=== PATIENT | male | born 1950 | race Caucasian/White ===

== ENCOUNTER 2016-11-12 12:47 | Emergency (ER) ==
[2016-11-12 12:53] VITALS: BP 177/82; TEMP 97.8; BMI 19.1
[2016-11-12] MEDS ORDERED: DECADRON 4 MG/ML SDV IM STA (13:16)
--- NOTE | 2016-11-12 13:23 | ED.PDOC ---
General ED Provider: Dr. AMIRA KANG Chief Complaint: Hypertension Stated Complaint: Been coughing, congestion, getting yellow, sputum, taking OTC meds, checked BP today it was high, came for the evaluation. Time Seen by Physician: 13:21 Mode of Arrival: Walk-In Information Source: Patient Nursing and Triage Documentation Reviewed and Agree: Yes Respiratory Complaint Exam - Respiratory Complaint/Exam Symptoms Are: Still present Timing: Constant Initial Severity: Mild Current Severity: Mild Location: Chest Character: Reports: Productive cough Aggravating: Reports: URI, Passive smoke exposure Alleviating: Reports: None Associated Signs and Symptoms: Reports: URI, Nasal congestion. Denies: Rapid breathing, Dyspnea, Fever, Chills, Chest pain, Pleuritic chest pain, Wheezing, Hemoptysis, Dizziness, Calf pain, Calf swelling, Edema, Hoarseness, Sinus discomfort, Vomiting, Sore throat, Weight loss, Decreased oral intake, Increased thirst, Increased appetite, Increased urination History of Healthcare-Acquired Pneumonia: No Related Surgical History: Reports: None Pulmonary Embolism Risk Factors: None Cardiac Risk Factors: Reports: None Pseudomonas Risk Factors: Reports: None Tuberculosis Risk Factors: Reports: None Status Asthmaticus Risk Factors: Reports: None Home Oxygen Use: No Recent Stress Test: No Recent Echo/LV Function: No Current Antibiotic Use: No Current Asthma Medication Use: No Respiratory Distress: None Dysphagia Present: No Stridor Present: No JVD Present: No Retractions: Not Present Diminished Breath Sounds: No Sinus Tenderness: None Grunting Respirations: No Differential Diagnoses: Pneumonia, Bronchitis Review of Systems - Review Of Systems Constitutional: Reports: Malaise Eyes: Reports: No symptoms Ears, Nose, Mouth, Throat: Reports: No symptoms Respiratory: Reports: Cough Cardiac: Reports: No symptoms GI: Reports: No symptoms : Reports: No symptoms Musculoskeletal: Reports: No symptoms Skin: Reports: No symptoms Neurological: Reports: No symptoms Endocrine: Reports: No symptoms Hematologic/Lymphatic: Reports: No symptoms All Other Systems: Reviewed and Negative Past Medical History - Past Medical History Previously Healthy: No Endocrine: Reports: None Cardiovascular: Reports: Hypertension Respiratory: Reports: None Hematological: Reports: None Gastrointestinal: Reports: None Genitourinary: Reports: None Neuro/Psych: Reports: None Musculoskeletal: Reports: None Cancer: Reports: None - Surgical History General Surgical History: Reports: Appendectomy, Cholecystectomy, Tonsillectomy - Family History Family History: Reports: None - Social History Smoking Status: Current every day smoker Smoking Cessation Counseling Time: > 10 min Hx Substance Use: No Alcohol Screening: None Physical Exam - Physical Exam Appearance: Well-appearing, No pain distress, Well-nourished Eyes: TIM, EOMI, Conjunctiva clear ENT: Ears normal, Nose normal, Oropharynx normal Respiratory: Airway patent, Breath sounds clear, Breath sounds equal, Respirations nonlabored Cardiovascular: RRR, Pulses normal, No rub, No murmur GI/: Soft, Nontender, No masses, Bowel sounds normal, No Organomegaly Musculoskeletal: Normal strength, ROM intact, No edema, No calf tenderness Skin: Warm, Dry, Normal color Neurological: Sensation intact, Motor intact, Reflexes intact, Cranial nerves intact, Alert, Oriented Psychiatric: Affect appropriate, Mood appropriate Interpretation - Radiology Interpretation Radiology Interpretation By: ED Physician Radiology Results: Negative Exam Interpreted: CXR Critical Care Note - Critical Care Note Total Time (mins): 0 Course - Course Orders, Labs, Meds: Orders Category Date Time Status Dexamethasone 4 mg/ml Inj [Decadron 4 mg/ml Sdv] MEDS 11/12/16 13:16 Discontinued 4 mg IM ONCE STA CHEST, 2 VIEWS PA & LAT Stat RADS 11/12/16 13:16 Taken Medications Discontinued Medications Generic Name Dose Route Start Last Admin Trade Name Ben PRN Reason Stop Dose Admin Dexamethasone Sodium Phosphate 4 mg 11/12/16 13:16 11/12/16 13:37 Decadron 4 Mg/Ml Sdv IM 11/12/16 13:17 4 mg ONCE STA Administration Vital Signs: Temp Pulse Resp BP Pulse Ox 11/12/16 12:48 97.8 F 74 14 177/82 H 92 L Departure - Departure Time of Disposition: 13:40 Disposition: HOME SELF-CARE Discharge Problem: Acute upper respiratory infection Instructions: Upper Respiratory Infection (ED) Condition: Stable Pt referred to PMD for follow-up: Yes Additional Instructions: INCREASE HYDRATION STOP OTC MEDS keep checking blood pressure smoking can cause lung cancer Prescriptions: Cephalexin [Keflex] 500 mg PO Q12HR #20 capsule Guaifenesin/Codeine Phosphate [Robitussin AC Syrup] 10 ml PO Q6H #1 bottle Methylprednisolone [Medrol Dosepak] 4 mg PO DIRECTED #1 pkg Allergies/Adverse Reactions: Allergies No Known Allergies Allergy (Unverified 11/12/16 12:52) Home Medications: Ambulatory Orders Cephalexin [Keflex] 500 mg PO Q12HR #20 capsule 11/12/16 Guaifenesin/Codeine Phosphate [Robitussin AC Syrup] 10 ml PO Q6H #1 bottle 11/12 Methylprednisolone [Medrol Dosepak] 4 mg PO DIRECTED #1 pkg 11/12/16 Disposition Discussed With: Patient
--- NOTE | 2016-11-12 13:42 | DI ---
EXAM: Chest two views HISTORY: Coughing COMPARISON: None TECHNIQUE: Two views of the chest were performed FINDINGS: Questionable interstitial infiltrate right upper lobe. Lungs are hyperinflated. There i s no pleural effusion or pneumothorax. The heart is normal in size. The mediastinal contour is nor mal. There are no acute abnormalities of the bones. IMPRESSION: 1. Questionable interstitial infiltrate right upper lobe could represent interstitial pneumonia / p neumonitis. Recommend radiographic follow-up 2. Hyperinflated lungs suggest chronic obstructive pulmonary disease. Report faxed at time of dictation.
== END 2016-11-12 14:03 | disposition home or self-care (01) ==
LOC: ED 12:47
DX: J06.9 Acute upper respiratory infection, unspecified (principal); I10 Essential (primary) hypertension; F17.210 Nicotine dependence, cigarettes, uncomplicated
CPT/HCPCS: 96372; 99283

== ENCOUNTER 2017-05-12 19:06 | Inpatient (IN) ==
[2017-05-12] MEDS ORDERED: DUONEB NEB STA (19:20)
[2017-05-12 19:37] LABS: BASOPHILS # (AUTO) 0.1 K/uL (0-0.2); BASOPHILS % (AUTO) 0.6 % (0.0-3.0); EOSINOPHILS % (AUTO) 0.1 % (0.0-7.0); HEMATOCRIT 37.3 % (42.0-52.0); HEMOGLOBIN 12.5 g/dl (14.0-18.0); IMMATURE GRANULOCYTE % (AUTO) 0.4 % (0.0-5.0); LYMPHOCYTES # (AUTO) 1.6 K/uL (0.60-3.4); LYMPHOCYTES % (AUTO) 19.5 (10.0-50.0); MEAN CORPUSCULAR HEMOGLOBIN 31.3 pg (27.0-31.0); MEAN CORPUSCULAR HGB CONC 33.5 (31.8-35.4); MEAN CORPUSCULAR VOLUME 93.3 fl (80.0-94.0); MONOCYTES # (AUTO) 0.5 K/uL (0.4-2.0); MONOCYTES % (AUTO) 6.5 (0-10); NEUTROPHILS # (AUTO) 5.9 K/ul (2.0-6.9); NEUTROPHILS % (AUTO) 72.9; PLATELET COUNT 294 10^3/uL (140-440); WHITE BLOOD COUNT 8.04 K/ul (4.2-10.2)
[2017-05-12 19:41] LABS: ABG BASE EXCESS 1 (-2.0-2.0); ABG HCO3 26.4 (22.0-26.0); ABG PCO2 50.1 mmHg (35-45); ABG TCO2 28 (22.0-28.0)
[2017-05-12 19:57] LABS: ALBUMIN 3.1 g/dL (3.4-5.0); ALBUMIN/GLOBULIN RATIO 0.76; ANION GAP 18.2; BILIRUBIN,TOTAL 0.45 mg/dL (0.00-1.20); BUN/CREATININE RATIO 10.81; CALCIUM 8.4 mg/dL (8.2-10.2); CREATININE 1.48 mg/dL (0.60-1.10); POTASSIUM 3.2 mmol/L (3.5-5.1); TOTAL PROTEIN 7.2 g/dL (5.8-8.1)
[2017-05-12] MEDS ORDERED: ZITHROMAX PO STA (20:01)
[2017-05-12] MEDS ORDERED: ROCEPHIN 1 GM in SODIUM CHLORIDE 50 ML IV STA (20:01)
[2017-05-12] MEDS ORDERED: SODIUM CHLORIDE 1,000 ML IV STA (20:01)
[2017-05-12] MEDS ORDERED: ROCEPHIN ONE (20:09)
--- NOTE | 2017-05-12 20:09 | DI ---
EXAM: Chest one view. CLINICAL INDICATION: Fever. COMPARISON: 11/12/2016. FINDINGS: A single AP radiograph of the thorax is provided. There are chronic underlying pulmonary parenchymal changes. There is calcified left upper lobe pulm onary granuloma, consistent with old healed granulomatous disease. The remainder of the pulmonary p arenchyma is clear and there is no pleural abnormality. The cardiomediastinal silhouette and visual ized bony structures are unchanged. IMPRESSION: 1. No acute pulmonary abnormality. 2. Chronic underlying pulmonary parenchymal changes.
--- NOTE | 2017-05-12 20:15 | ED.PDOC ---
General ED Provider: Dr. MAURI QUINONEZ Chief Complaint: Fever Stated Complaint: Patient is brought by Family with complaints of 2 day history of cough, weakness and fever. Also complains of shortness of breath and pain on the mid to lower abdomen. Time Seen by Physician: 19:10 Mode of Arrival: Wheelchair Information Source: Patient, Family Exam Limitations: No limitations Primary Care Provider: ALISHA BENITEZ Nursing and Triage Documentation Reviewed and Agree: Yes Review of Systems - Review Of Systems Constitutional: Reports: Fever, Weakness, Loss of appetite Eyes: Reports: No symptoms Ears, Nose, Mouth, Throat: Reports: No symptoms Respiratory: Reports: Cough, Short of air, Wheezing Cardiac: Reports: No symptoms GI: Reports: No symptoms : Reports: No symptoms Musculoskeletal: Reports: No symptoms Skin: Reports: No symptoms Neurological: Reports: Anxiety Endocrine: Reports: No symptoms Hematologic/Lymphatic: Reports: No symptoms All Other Systems: Reviewed and Negative Past Medical History - Past Medical History Previously Healthy: No Endocrine: Reports: None Cardiovascular: Reports: Hypertension Respiratory: Reports: None Hematological: Reports: None Gastrointestinal: Reports: None Genitourinary: Reports: None Neuro/Psych: Reports: None Musculoskeletal: Reports: None Cancer: Reports: None - Surgical History General Surgical History: Reports: Appendectomy, Cholecystectomy, Tonsillectomy - Family History Family History: Reports: None - Social History Smoking Status: Current every day smoker, Heavy tobacco smoker Hx Substance Use: No Alcohol Screening: None - Immunizations Tetanus Shot up to Date: Yes Physical Exam - Physical Exam Appearance: Ill-appearing, Thin Ill-appearing: Moderate Pain Distress: Mild Neck: Supple Respiratory: Crackles (worse on the right ) Cardiovascular: RRR, Pulses normal, No rub, No murmur GI/: Soft, Nontender, No masses, Bowel sounds normal, No Organomegaly Musculoskeletal: Normal strength, ROM intact, No edema, No calf tenderness Skin: Warm, Dry, Normal color Neurological: Sensation intact, Motor intact, Reflexes intact, Cranial nerves intact, Alert, Oriented Psychiatric: Anxious Interpretation - Radiology Interpretation Radiology Interpretation By: Radiologist Radiology Results: Negative Exam Interpreted: Portable CXR Radiology Interpretation By: Radiologist Radiology Results: Negative (for PE) Exam Interpreted: CT Scan - EKG Interpretation Rate: Normal Rhythm: Sinus Ectopy: PVCs ST Segment: Other (non specific) Interpretation: non specific Re-Evaluation - Re-Evaluation Time of Re-Evaluation: 22:43 Status: Improved Vital Signs Stable: Yes Physician Notification - Case Discussed Physician Notified: Violetaaysha Time of Notification: 22:43 (Ok to Admit to SCU due to Hypoxia ) Critical Care Note - Critical Care Note Total Time (mins): 45 Course - Course Hematology/Chemistry: 05/12/17 19:25 05/12/17 19:25 Orders, Labs, Meds: Lab Review 05/12/17 05/12/17 05/12/17 19:21 19:25 19:30 WBC 8.04 RBC 4.00 L Hgb 12.5 L Hct 37.3 L MCV 93.3 MCH 31.3 H MCHC 33.5 RDW Coeff of Jt 13.5 Plt Count 294 Immature Gran % (Auto) 0.4 Neut % (Auto) 72.9 Lymph % (Auto) 19.5 [place] % (Auto) 6.5 Eos % (Auto) 0.1 Baso % (Auto) 0.6 Immature Gran # (Auto) 0.0 Neut # 5.9 Lymph # 1.6 [place] # 0.5 Eos # 0.0 Baso # 0.1 D-Dimer (Manual) 1286.03 Puncture Site Lb O2 Saturation 84.0 L ABG pH 7.330 L ABG pCO2 50.1 H ABG pO2 53.0 L* ABG HCO3 26.4 H ABG Total CO2 28 ABG Base Excess 1 Otoniel Test + FiO2 % 21.0 Sodium 142 Potassium 3.2 L Chloride 101 Carbon Dioxide 26 Anion Gap 18.2 BUN 16 Creatinine 1.48 H Estimated GFR (MDRD) 48.00 BUN/Creatinine Ratio 10.81 Glucose 100 Lactic Acid 7.6 Calcium 8.4 Total Bilirubin 0.45 AST 13 L ALT 13 Alkaline Phosphatase 115 Troponin I 0.0200 B-Natriuretic Peptide 94 Total Protein 7.2 Albumin 3.1 L Globulin 4.1 Albumin/Globulin Ratio 0.76 Procalcitonin < 0.05 Urine Color Urine Clarity Urine pH Ur Specific [place] Urine Protein Urine Glucose (UA) Urine Ketones Urine Blood Urine Nitrite Urine Bilirubin Urine Urobilinogen Ur Leukocyte Esterase Ur Squamous Epith Cells 05/12/17 20:20 WBC RBC Hgb Hct MCV MCH MCHC RDW Coeff of Jt Plt Count Immature Gran % (Auto) Neut % (Auto) Lymph % (Auto) [place] % (Auto) Eos % (Auto) Baso % (Auto) Immature Gran # (Auto) Neut # Lymph # [place] # Eos # Baso # D-Dimer (Manual) Puncture Site O2 Saturation ABG pH ABG pCO2 ABG pO2 ABG HCO3 ABG Total CO2 ABG Base Excess [place] Test FiO2 % Sodium Potassium Chloride Carbon Dioxide Anion Gap BUN Creatinine Estimated GFR (MDRD) BUN/Creatinine Ratio Glucose Lactic Acid Calcium Total Bilirubin AST ALT Alkaline Phosphatase Troponin I B-Natriuretic Peptide Total Protein Albumin Globulin Albumin/Globulin Ratio Procalcitonin Urine Color Yellow Urine Clarity Clear Urine pH 6.0 Ur Specific [place] 1.025 Urine Protein 2+ Urine Glucose (UA) Negative Urine Ketones Negative Urine Blood Negative Urine Nitrite Negative Urine Bilirubin Negative Urine Urobilinogen 1.0 Ur Leukocyte Esterase Negative Ur Squamous Epith Cells 10-20 Orders Category Date Time Status ADMIT PATIENT INPATIENT .TO SCU (MONITORED BED) ADMISSION 05/12/17 22:29 Ordered ABG DRAW REQUEST Stat CARDIO 05/12/17 19:21 Completed EKG-(ED ONLY) Stat CARDIO 05/12/17 19:35 Completed NEBULIZER TREATMENT Routine CARDIO 05/12/17 22:34 Ordered NEBULIZER TREATMENT Stat CARDIO 05/12/17 19:21 Completed OXYGEN Routine CARDIO 05/12/17 22:29 Ordered ACTIVITY .Up ad Kinjal CARE 05/12/17 22:31 Ordered INTAKE & OUTPUT Q8HR CARE 05/12/17 22:30 Ordered IV ACCESS ONCE CARE 05/12/17 19:19 Active NPO REMINDER: IMAGING ONCE CARE 05/12/17 21:24 Completed TELEMETRY MONITORING TELE CARE 05/12/17 22:30 Ordered VITAL SIGNS Q4HR CARE 05/12/17 22:31 Ordered REGULAR DIET DIETARY 05/12/17 Breakfast Ordered ED APPLY O2 .ONCE EMERGENCY 05/12/17 19:19 Active ED VASC TECH APPLIED .ONCE EMERGENCY 05/12/17 19:19 Active ED IV/MEDIPORT/POWERPORT .ONCE EMERGENCY 05/12/17 19:40 Active ED VITAL SIGNS Q1HR EMERGENCY 05/12/17 19:19 Active ABG Stat LAB 05/12/17 19:21 Completed BASIC METABOLIC PANEL DAILY@0600 LAB 05/13/17 06:00 Ordered BASIC METABOLIC PANEL DAILY@0600 LAB 05/14/17 06:00 Ordered BASIC METABOLIC PANEL DAILY@0600 LAB 05/15/17 06:00 Ordered BASIC METABOLIC PANEL DAILY@0600 LAB 05/16/17 06:00 Ordered BASIC METABOLIC PANEL DAILY@0600 LAB 05/17/17 06:00 Ordered BASIC METABOLIC PANEL DAILY@0600 LAB 05/18/17 06:00 Ordered BASIC METABOLIC PANEL DAILY@0600 LAB 05/19/17 06:00 Ordered BASIC METABOLIC PANEL DAILY@0600 LAB 05/20/17 06:00 Ordered BASIC METABOLIC PANEL DAILY@0600 LAB 05/21/17 06:00 Ordered BASIC METABOLIC PANEL DAILY@0600 LAB 05/22/17 06:00 Ordered BASIC METABOLIC PANEL DAILY@0600 LAB 05/23/17 06:00 Ordered BASIC METABOLIC PANEL DAILY@0600 LAB 05/24/17 06:00 Ordered BASIC METABOLIC PANEL DAILY@0600 LAB 05/25/17 06:00 Ordered BASIC METABOLIC PANEL DAILY@0600 LAB 05/26/17 06:00 Ordered BASIC METABOLIC PANEL DAILY@0600 LAB 05/27/17 06:00 Ordered BASIC METABOLIC PANEL DAILY@0600 LAB 05/28/17 06:00 Ordered BASIC METABOLIC PANEL DAILY@0600 LAB 05/29/17 06:00 Ordered BASIC METABOLIC PANEL DAILY@0600 LAB 05/30/17 06:00 Ordered BASIC METABOLIC PANEL DAILY@0600 LAB 05/31/17 06:00 Ordered BASIC METABOLIC PANEL DAILY@0600 LAB 06/01/17 06:00 Ordered BLOOD CULTURE Stat LAB 05/12/17 19:25 Received BNP [B-TYPE NATRIURETIC PEPTIDE] Stat LAB 05/12/17 19:30 Completed CBC W/ AUTO DIFF DAILY@0600 LAB 05/13/17 06:00 Ordered CBC W/ AUTO DIFF DAILY@0600 LAB 05/14/17 06:00 Ordered CBC W/ AUTO DIFF DAILY@0600 LAB 05/15/17 06:00 Ordered CBC W/ AUTO DIFF DAILY@0600 LAB 05/16/17 06:00 Ordered CBC W/ AUTO DIFF DAILY@0600 LAB 05/17/17 06:00 Ordered CBC W/ AUTO DIFF DAILY@0600 LAB 05/18/17 06:00 Ordered CBC W/ AUTO DIFF DAILY@0600 LAB 05/19/17 06:00 Ordered CBC W/ AUTO DIFF DAILY@0600 LAB 05/20/17 06:00 Ordered CBC W/ AUTO DIFF DAILY@0600 LAB 05/21/17 06:00 Ordered CBC W/ AUTO DIFF DAILY@0600 LAB 05/22/17 06:00 Ordered CBC W/ AUTO DIFF DAILY@0600 LAB 05/23/17 06:00 Ordered CBC W/ AUTO DIFF DAILY@0600 LAB 05/24/17 06:00 Ordered CBC W/ AUTO DIFF DAILY@0600 LAB 05/25/17 06:00 Ordered CBC W/ AUTO DIFF DAILY@0600 LAB 05/26/17 06:00 Ordered CBC W/ AUTO DIFF DAILY@0600 LAB 05/27/17 06:00 Ordered CBC W/ AUTO DIFF DAILY@0600 LAB 05/28/17 06:00 Ordered CBC W/ AUTO DIFF DAILY@0600 LAB 05/29/17 06:00 Ordered CBC W/ AUTO DIFF DAILY@0600 LAB 05/30/17 06:00 Ordered CBC W/ AUTO DIFF DAILY@0600 LAB 05/31/17 06:00 Ordered CBC W/ AUTO DIFF DAILY@0600 LAB 06/01/17 06:00 Ordered CBC W/ AUTO DIFF Stat LAB 05/12/17 19:25 Completed COMPREHENSIVE METABOLIC PANEL Stat LAB 05/12/17 19:25 Completed D-DIMER Stat LAB 05/12/17 19:30 Completed LACTIC ACID Stat LAB 05/12/17 19:25 Completed PROCALCITONIN Stat LAB 05/12/17 19:25 Completed TROPONIN I Stat LAB 05/12/17 19:25 Completed UA [URINALYSIS C & S IF INDICATED] Stat LAB 05/12/17 20:20 Completed 0.9 % Sodium Chloride [Saline Flush] MEDS 05/12/17 19:40 Ordered 1 syr IVF PRN PRN Acetaminophen [Tylenol] MEDS 05/12/17 22:29 Ordered 650 mg PO Q4H PRN Azithromycin [Zithromax] MEDS 05/13/17 22:34 Ordered 250 mg PO DAILY Azithromycin [Zithromax] MEDS 05/12/17 20:01 Discontinued 500 mg PO ONCE STA Ceftriaxone Sodium [Rocephin] MEDS 05/12/17 20:09 Discontinued 1 gm .ROUTE .STK-MED ONE Ceftriaxone Sodium [Rocephin] 1 gm MEDS 05/13/17 21:00 Ordered 0.9 % Sodium Chloride [Sodium Chloride] 50 ml IV DAILY Ceftriaxone Sodium [Rocephin] 1 gm MEDS 05/12/17 20:01 Discontinued 0.9 % Sodium Chloride [Sodium Chloride] 50 ml IV ONCE Enoxaparin Sodium [Lovenox] MEDS 05/13/17 09:00 Ordered 30 mg SUBCUT DAILY Gabapentin [Neurontin] MEDS 05/13/17 09:00 Ordered 300 mg PO BID Ipratropium/Albuterol Neb [Duoneb] MEDS 05/12/17 19:20 Discontinued 1 vial NEB ONCE STA Ipratropium/Albuterol Neb [Duoneb] MEDS 05/12/17 22:29 Ordered 1 vial NEB RTQ2H PRN Ipratropium/Albuterol Neb [Duoneb] MEDS 05/13/17 06:00 Ordered 1 vial NEB RTQID Methylprednisolone Sod Succ/Pf [Solu-Medrol 125 mg] MEDS 05/13/17 05:00 Ordered 125 mg IVP Q8HR Morphine Sulfate [Morphine Sulfate ER] MEDS 05/13/17 09:00 Ordered 30 mg PO BID Olmesartan Medoxomil [Benicar] MEDS 05/13/17 09:00 Ordered 20 mg PO DAILY Ondansetron HCl/Pf [Zofran 4 mg/2 ml] MEDS 05/12/17 22:29 Ordered 4 mg IVP Q6H PRN Potassium Chloride in 0.9%NaCl [Sodium Chloride 0.9%- MEDS 05/12/17 22:30 Ordered KCl 20 Meq] 1,000 ml IV 100 mls/hr Pravastatin Sodium [Pravachol] MEDS 05/13/17 21:00 Ordered 20 mg PO BEDTIME Sodium Chloride 0.9% [Sodium Chloride] 1,000 ml MEDS 05/12/17 20:01 Discontinued IV BOLUS Sucralfate [Carafate] MEDS 05/13/17 09:00 Ordered 1 gm PO BID RESUSCITATION STATUS Routine OTHERS 05/12/17 22:29 Ordered CHEST, 1V AP ONLY Stat RADS 05/12/17 19:[address] CHEST PE PROTOCOL Stat RADS 05/12/17 21:24 Completed PT CONSULT Routine THERAPIES 05/12/17 Ordered Medications Generic Name Dose Route Start Last Admin Trade Name Freq PRN Reason Stop Dose Admin Acetaminophen 650 mg 05/12/17 22:29 Tylenol PO Q4H PRN Fever Albuterol/Ipratropium 1 vial 05/13/17 06:00 Duoneb NEB RTQID LISET Albuterol/Ipratropium 1 vial 05/12/17 22:29 Duoneb NEB RTQ2H PRN Wheezing Azithromycin 250 mg 05/13/17 22:34 Zithromax PO 05/16/17 09:01 DAILY [facility] Enoxaparin Sodium 30 mg 05/13/17 09:00 Lovenox SUBCUT DAILY [facility] Gabapentin 300 mg 05/13/17 09:00 Neurontin PO BID [facility] Ceftriaxone Sodium 1 gm/ 50 mls @ 75 mls/hr 05/13/17 21:00 Sodium Chloride IV DAILY [facility] Potassium Chloride/Sodium Chloride 1,000 mls @ 100 mls/hr 05/12/17 22:30 Sodium Chloride 0.9%-Kcl 20 Meq IV .Q10H [facility] Methylprednisolone Sodium Succinate 125 mg 05/13/17 05:00 Solu-Medrol 125 Mg IVP Q8HR [facility] Non-Formulary Medication 30 mg 05/13/17 09:00 Morphine Sulfate [Morphine Sulfate Er] PO BID [facility] Olmesartan 20 mg 05/13/17 09:00 Benicar PO DAILY [facility] Ondansetron HCl 4 mg 05/12/17 22:29 Zofran 4 Mg/2 Ml IVP Q6H PRN Nausea / Vomiting Pravastatin Sodium 20 mg 05/13/17 21:00 Pravachol PO BEDTIME [facility] Sodium Chloride 1 syr 05/12/17 19:40 05/12/17 19:42 Saline Flush IVF 1 syr PRN PRN Administration To flush IV Sucralfate 1 gm 05/13/17 09:00 Carafate PO BID [facility] Discontinued Medications Generic Name Dose Route Start Last Admin Trade Name Freq PRN Reason Stop Dose Admin Albuterol/Ipratropium 1 vial 05/12/17 19:20 05/12/17 19:37 Duoneb NEB 05/12/17 19:21 1 vial ONCE STA Administration Azithromycin 500 mg 05/12/17 20:01 05/12/17 20:19 Zithromax PO 05/12/17 20:02 500 mg ONCE STA Administration Ceftriaxone Sodium 1 gm/ 50 mls @ 75 mls/hr 05/12/17 20:01 05/12/17 20:19 Sodium Chloride IV 05/12/17 20:40 75 mls/hr ONCE STA Administration Sodium Chloride 1,000 mls @ 1,000 mls/hr 05/12/17 20:01 05/12/17 20:08 Sodium Chloride IV 05/12/17 21:00 1,000 mls/hr BOLUS STA Administration Vital Signs: Temp Pulse Resp BP Pulse Ox 05/12/17 22:03 98.6 F 74 16 151/72 H 97 05/12/17 19:07 102.3 F H 92 H 24 149/79 H 85 L Departure - Departure Time of Disposition: 22:46 Disposition: ADMITTED INPATIENT Discharge Problem: COPD with exacerbation, Bronchitis, Acute on chronic respiratory failure with hypoxia Condition: Fair Pt referred to PMD for follow-up: Yes Allergies/Adverse Reactions: Allergies No Known Allergies Allergy (Verified 05/12/17 19:22) Home Medications: Ambulatory Orders Gabapentin [Neurontin] 300 mg PO BID 05/12/17 Morphine Sulfate [Morphine Sulfate ER] 30 mg PO BID 05/12/17 Olmesartan Medoxomil 20 mg PO DAILY 05/12/17 Pravastatin Sodium [Pravachol] 20 mg PO BEDTIME 05/12/17 Sucralfate 1 gm PO BID 05/12/17
[2017-05-12 20:26] LABS: ADD URINE MICROSCOPIC YES; BILIRUBIN,URINE Negative (NEGATIVE); KETONES,URINE Negative (NEGATIVE); LEUKOCYTE ESTERASE ,URINE Negative (NEGATIVE); NITRITE,URINE Negative (NEGATIVE); PROTEIN,URINE 2+ (NEGATIVE); URINE, BLOOD Negative (NEGATIVE)
--- NOTE | 2017-05-12 22:23 | CT ---
EXAM: CT pulmonary angiogram. HISTORY: Cough. Shortness of breath. Elevated D-dimer. Evaluate for pulmonary embolism. PROCEDURE: After the intravenous injection of contrast a CT pulmonary angiogram was performed with contiguous axial CT images of the chest and multiplanar reformats and MIP images. FINDINGS: There is normal enhancement of the pulmonary arteries with no evidence of pulmonary emboli sm. The heart is within normal limits in size. The thoracic aorta is within normal limits in diame ter. There are calcified mediastinal and hilar lymph nodes. There is biapical scarring. There is mi nimal bibasilar dependent atelectasis. There are minimal secretions in the bilateral lower lobe seg mental and subsegmental bronchi. There are degenerative changes in the spine. There are fluid densit y cysts in the liver. The adrenal glands are normal in appearance. There are atherosclerotic calcifi cations and plaque formation in the abdominal aorta. There is aneurysmal dilatation of the infraren al abdominal aorta measuring up to 3.1 cm in diameter. The aneurysm is incompletely visualized seco ndary to termination of image acquisition. There are degenerative changes in the spine. Impression: No evidence of pulmonary embolism. Minimal bibasilar dependent atelectasis. Minimal secretions in the bibasilar bronchi as described. Infrarenal abdominal aortic aneurysm as described. Atherosclerotic vascular disease.
[2017-05-12] MEDS ORDERED: DUONEB NEB PRN (22:29)
[2017-05-12] MEDS ORDERED: ZOFRAN 4 MG/2 ML IVP PRN (22:29)
[2017-05-12] MEDS ORDERED: TYLENOL PO PRN (22:29)
[2017-05-12] MEDS ORDERED: SODIUM CHLORIDE 0.9%-KCL 20 MEQ 1,000 ML IV SCH (22:30)
[2017-05-12 23:58] VITALS: BMI 19.4
[2017-05-13] MEDS: SOLU-MEDROL 125 MG IVP SCH ×3 (04:44→20:52)
[2017-05-13 04:58] LABS: BASOPHILS % (AUTO) 0.3 % (0.0-3.0); EOSINOPHILS % (AUTO) 0.2 % (0.0-7.0); HEMATOCRIT 33.1 % (42.0-52.0); HEMOGLOBIN 10.8 g/dl (14.0-18.0); IMMATURE GRANULOCYTE % (AUTO) 0.3 % (0.0-5.0); LYMPHOCYTES # (AUTO) 1.3 K/uL (0.60-3.4); LYMPHOCYTES % (AUTO) 21.3 (10.0-50.0); MEAN CORPUSCULAR HEMOGLOBIN 30.8 pg (27.0-31.0); MEAN CORPUSCULAR HGB CONC 32.6 (31.8-35.4); MEAN CORPUSCULAR VOLUME 94.3 fl (80.0-94.0); MONOCYTES # (AUTO) 0.4 K/uL (0.4-2.0); MONOCYTES % (AUTO) 6.2 (0-10); NEUTROPHILS # (AUTO) 4.4 K/ul (2.0-6.9); NEUTROPHILS % (AUTO) 71.7; PLATELET COUNT 244 10^3/uL (140-440); RED BLOOD COUNT 3.51 10^6/ul (4.70-6.10); WHITE BLOOD COUNT 6.16 K/ul (4.2-10.2)
[2017-05-13 05:10] LABS: ANION GAP 14.2; BUN/CREATININE RATIO 12.5; CALCIUM 7.6 mg/dL (8.2-10.2); CREATININE 1.28 mg/dL (0.60-1.10); POTASSIUM 3.2 mmol/L (3.5-5.1)
[2017-05-13] MEDS: DUONEB NEB SCH ×2 (05:48→10:12)
[2017-05-13] MEDS ORDERED: MORPHINE SULFATE 30 MG PO SCH ×21 (09:00)
[2017-05-13] MEDS: BENICAR PO SCH (09:52)
[2017-05-13] MEDS: NEURONTIN PO SCH ×2 (09:53→20:53)
[2017-05-13] MEDS: CARAFATE PO SCH ×2 (09:53→17:11)
[2017-05-13] MEDS: MS CONTIN PO SCH ×2 (09:54→20:53)
[2017-05-13] MEDS: LOVENOX SUBCUT SCH (09:54)
[2017-05-13] MEDS ORDERED: K-DUR PO STA (14:06)
--- NOTE | 2017-05-13 15:59 | CT ---
Exam: CT abdomen and pelvis without IV contrast. Clinical indication: Abdominal pain. TECHNIQUE: Axial unenhanced CT images of the thorax were obtained followed by coronal and sagittal reformats. There are no prior studies available for comparison. Findings: There is no free intra-abdominal gas or fluid. There is contrast material in a distended urinary bladder from the CT performed earlier the same day . The urinary bladder volume is estimated to be at least a 700 ml in urine raising concern for blad roxanne outlet obstruction. There is also asymmetric enhancement of the kidneys. The right kidney demonstrates contrast within the collecting system and no significant contrast within the renal parenchyma. The left kidney demo nstrates contrast within the renal parenchyma, but no contrast within the left renal collecting syst em. This raises concern for developing acute left tubular necrosis. There is a small cyst within the left lobe of the liver. The liver is otherwise unremarkable, given the limitations of an unenhanced CT. There has been a prior cholecystectomy. The adrenals, pancreas, and spleen are grossly unremarkable, given the limitations of an unenhanced CT, other than incidental punctate splenic calcifications consistent with old healed granulomatous d isease. The abdominal aorta is aneurysmal measuring 3.3 cm in maximum diameter. There is minimal intra-abdominal fat. There is no definite enlarged abdominal or pelvic lymph nodes , by size criteria. The bowel is grossly unremarkable. There is evidence of prior posterior lumbar fusion of L4-S1. There is also evidence of prior surger y at the T10-T11 disc space. Impression: 1. Distended urinary bladder with the urinary volume of at least 78 ml in urine raising concern for bladder outlet obstruction. 2. Enhancing left kidney, but with out evidence of contrast excretion raising concern for developin g acute tubular necrosis of the right kidney. 3. 3.3 cm infrarenal fusiform abdominal aortic aneurysm.
[2017-05-13] MEDS: ATROVENT 0.02% NEB NEB SCH ×2 (16:58→23:22)
[2017-05-13] MEDS ORDERED: XOPENEX 1.25 MG NEB ONE (16:58)
[2017-05-13] MEDS: XOPENEX 1.25 MG NEB SCH ×2 (16:58→23:21)
[2017-05-13] MEDS: ROCEPHIN 1 GM in SODIUM CHLORIDE 50 ML IV SCH (20:52)
[2017-05-13] MEDS: PRAVACHOL PO SCH (20:53)
[2017-05-13] MEDS: ZITHROMAX PO SCH (20:53)
[2017-05-13] MEDS: SODIUM CHLORIDE 0.9%-KCL 20 MEQ 1,000 ML IV SCH (22:38)
[2017-05-14 05:14] LABS: HEMATOCRIT 28.1 % (42.0-52.0); HEMOGLOBIN 9.5 g/dl (14.0-18.0); MEAN CORPUSCULAR HEMOGLOBIN 31.1 pg (27.0-31.0); MEAN CORPUSCULAR HGB CONC 33.8 (31.8-35.4); MEAN CORPUSCULAR VOLUME 92.1 fl (80.0-94.0); PLATELET COUNT 244 10^3/uL (140-440); RED BLOOD COUNT 3.05 10^6/ul (4.70-6.10); WHITE BLOOD COUNT 7.25 K/ul (4.2-10.2)
[2017-05-14] MEDS: ATROVENT 0.02% NEB NEB SCH ×4 (05:17→23:15)
[2017-05-14] MEDS: XOPENEX 1.25 MG NEB SCH ×4 (05:17→23:15)
[2017-05-14 05:29] LABS: ANION GAP 13.5; BUN/CREATININE RATIO 16.98; CALCIUM 7.7 mg/dL (8.2-10.2); CREATININE 1.59 mg/dL (0.60-1.10); POTASSIUM 3.5 mmol/L (3.5-5.1)
[2017-05-14] MEDS: CARAFATE PO SCH ×2 (05:35→18:04)
[2017-05-14] MEDS: SOLU-MEDROL 125 MG IVP SCH ×3 (05:35→21:31)
[2017-05-14 05:40] LABS: ANISOCYTOSIS NOT PRESENT (NOT PRESENT)
[2017-05-14] MEDS: BENICAR PO SCH (09:50)
[2017-05-14] MEDS: MS CONTIN PO SCH ×2 (09:50→20:48)
[2017-05-14] MEDS: NEURONTIN PO SCH ×2 (09:50→20:48)
[2017-05-14] MEDS: LOVENOX SUBCUT SCH (09:51)
--- NOTE | 2017-05-14 14:48 | CT ---
EXAM: CT of the head without contrast History: Weakness and tremors Technique: Multiplanar CT images through the head were obtained without the administration of IV co ntrast Findings: The visualized paranasal sinuses and mastoid air cells are clear in general. No acute ca lvarial abnormalities. Intracranially the ventricular and cisternal spaces are normal in size, shape and configuration for a patient of this age. No dominant mass or midline shift. No acute intracranial hemorrhage or abnor mal extraaxial fluid collections. Impression: No acute intracranial process.
--- NOTE | 2017-05-14 15:25 | HP ---
DATE OF SERVICE: 05/12/17 CHIEF COMPLAINT: Shortness of breath and coughing. HISTORY OF PRESENT ILLNESS: This patient is a 66 year old male came to the emergency room been coughing with congestion and getting yellow/green phlegm and shortness of breath gradually getting worse. Pain to the mid to lower abdomen and started having the fever. Came and seen by Dr. Wood in the emergency room. Hgb 12.5, D-dimer 12.86, ABG showed the pH 7.330, pCO2 50.1, pO2 54. Chemistry showed the potassium was 3.2. At that time CT of the chest done with the P protocol showed the bilateral pneumonia and PE was negative. The patient was admitted to the hospital with bilateral pneumonia, COPD exacerbation and acute respiratory failure. REVIEW OF SYSTEMS: CONSTITUTIONAL: Fever of 102.3, no chills. Weakness and tiredness. HEENT: Normal. ENDOCRINE: No weight gain; no weight loss. CVS: No chest pain. No PND, no orthopnea. Shortness of breath. RESPIRATORY: Cough and congestion. No hemoptysis. GI: No nausea, no vomiting. No abdominal pain. No melena. : No hematuria. No polyuria. MUSCULOSKELETAL: No joint swelling. PSYCHIATRIC: Not anxious. No depression. No suicidal thoughts. No homicidal thoughts. SKIN: Intact, no open lesions. PAST MEDICAL HISTORY: Coronary artery disease Dyslipidemia Hypertension COPD Osteoarthritis DJD spine Chronic pain Hyperthyroidism PAST SURGICAL HISTORY: Cholecystectomy Cataract left eye PERSONAL HISTORY: Continued nicotine use and substance use. Family history is significant for the Hypertension and dyslipidemia MEDICATIONS: Sucralfate Morphine Neurontin Pravachol Olmesartan ALLERGIES: No known medications PHYSICAL EXAMINATION: V/S: Blood pressure 149/79, respiratory 24, pulse 92, saturation 85% on room air, temperature 102.3. GENERAL: Cachetic man sitting in the bed in respiratory distress. HEENT: Atraumatic, normocephalic. No scleral icterus. Mucosa dry. NECK: Supple. No JVD, no bruit. No lymphadenopathy. No thyromegaly. HEART: S1, S2 normal. No murmur. No cyanosis or clubbing. No ascites. LUNGS: Decreased and basilar crackles. Defused expiratory wheeze. No rales or rhonchi. ABDOMEN: Soft, nontender. Bowel sounds are active. No CVA tenderness. No rigidity or guarding. EXTREMITIES: No cyanosis, clubbing or pedal edema. MUSCULOSKELETAL: Normal joints, no swelling. NEUROLOGIC: The patient is awake and alert and oriented. SKIN: Intact; no open lesions. LYMPHATIC: No lymph nodes palpable. LABS: Sodium 142, potassium 3.2, chloride 101, bicarb 26, BUN 16, creatinine 1.48, WBC 8.04. hgb 12.5, hct 37.3, plt count 294, ABG pH 7.330, pCO2 50.1, pO2 53.0. ASSESSMENT: 1. Acute respiratory failure 2. Hypoxemic respiratory failure 3. COPD exacerbation secondary to the pneumonia, bilateral 4. Hypokalemia 5. Elevated D-Dimer negative for PE 6. Anemia 7. Chronic pain syndrome 8. DJD spine 9. Osteoarthritis 10.Hypertension PLAN: 1. Admit patient to the regular floor 2. CBC and CMP today and daily 3. Cardiac enzymes and Troponin 4. Rocephin and Azithromycin 5. DUO NEBS 6. Lovenox for the DVT prophylaxis 7. Solu-Medrol 125mg Q 8 hours 8. IV fluids at 40mml per hour Will follow the patient in daily rounds. TIME SPENT: MORE THAN 70 minutes MTDD
--- NOTE | 2017-05-14 15:29 | PN ---
DATE OF SERVICE: 05/12/17 SUBJECTIVE: The patient is still having cough, congestion and some shortness of breath, but no fever. REVIEW OF SYSTEMS: CONSTITUTIONAL: No fever, no chills. HEENT: Normal. ENDOCRINE: No weight gain, no weight loss. CVS: No angina symptoms. No CHF symptoms. No palpitations. No atypical chest pain for CAD. No shortness of breath. No PND, no orthopnea. RESPIRATORY: Cough, congestion and shortness of breath. No hemoptysis. GI: No nausea, no vomiting. No abdominal pain. : No hematuria. No polyuria. MUSCULOSKELETAL:. No joint swelling. PSYCHIATRIC: Not anxious. No depression. No suicidal thoughts. No homicidal thoughts. SKIN: Intact. No rash. PHYSICAL EXAMINATION: He is a cachetic male sitting in the bed. V/S: Blood pressure 119/74, respiratory rate 16, heart rate 97, temperature 98.7. HEENT: Normocephalic, atraumatic. Mucosa dry. NECK: Supple. No JVD, no carotid bruit. No lymphadenopathy. LUNGS: Decreased and basilar crackles. Mild expiratory wheezes present. No rales or rhonchi. HEART: S1, S2 normal. No S3. No murmur, gallop or regurgitation. ABDOMEN: Soft, nontender. Epigastric tenderness present. Bowel sounds active. No rigidity. No rebound or guarding. No CVA tenderness. EXTREMITIES: No clubbing, cyanosis or pedal edema. MUSCULOSKELETAL: No joint swelling. NEUROLOGIC: Awake, alert, oriented times three. No focal deficit. LYMPHATIC: No lymph nodes palpable. SKIN: Intact. LABS: Sodium is 142, potassium 3.2, chloride 105, bicarb 26, BUN 16, creatinine is 1.28. White count is 6.16, hemoglobin 10.8, hematocrit 33.1, platelet count is 244. ASSESSMENT: 1. COMMUNITY ACQUIRED PNEUMONIA, BILATERAL 2. ACUTE RESPIRATORY FAILURE 3. HYPOXEMIA 4. HYPOKALEMIA 5. ANEMIA 6. HYPERTENSION 7. DJD OF THE SPINE 8. CHRONIC PAIN SYNDROME PLAN: 1. Potassium, K-Dur [address] of abdomen and pelvis. 3. Continue Rocephin and Zithromycin. 4. Solu-Medrol, DuoNebs. 5. Lovenox for the DVT prophylaxis. TIME SPENT: More than 30 minutes MTDD
[2017-05-14] MEDS ORDERED: ATROVENT 0.02% NEB NEB ONE (16:58)
[2017-05-14] MEDS: PRAVACHOL PO SCH (20:48)
[2017-05-14] MEDS: ROCEPHIN 1 GM in SODIUM CHLORIDE 50 ML IV SCH (20:48)
[2017-05-14] MEDS: ZITHROMAX PO SCH (20:48)
[2017-05-14] MEDS: PROTONIX IV IVP SCH (21:30)
[2017-05-15] MEDS: SODIUM CHLORIDE 0.9%-KCL 20 MEQ 1,000 ML IV SCH ×2 (01:58→17:33)
[2017-05-15 05:03] LABS: BASOPHILS % (AUTO) 0.1 % (0.0-3.0); HEMATOCRIT 28.9 % (42.0-52.0); HEMOGLOBIN 9.8 g/dl (14.0-18.0); IMMATURE GRANULOCYTE % (AUTO) 0.7 % (0.0-5.0); LYMPHOCYTES # (AUTO) 0.3 K/uL (0.60-3.4); LYMPHOCYTES % (AUTO) 2.5 (10.0-50.0); MEAN CORPUSCULAR HEMOGLOBIN 30.8 pg (27.0-31.0); MEAN CORPUSCULAR HGB CONC 33.9 (31.8-35.4); MEAN CORPUSCULAR VOLUME 90.9 fl (80.0-94.0); MONOCYTES # (AUTO) 0.4 K/uL (0.4-2.0); MONOCYTES % (AUTO) 2.7 (0-10); NEUTROPHILS # (AUTO) 12.4 K/ul (2.0-6.9); PLATELET COUNT 272 10^3/uL (140-440); RED BLOOD COUNT 3.18 10^6/ul (4.70-6.10); WHITE BLOOD COUNT 13.19 K/ul (4.2-10.2)
[2017-05-15 05:27] LABS: ANION GAP 16.5; BUN/CREATININE RATIO 18.7; CALCIUM 7.6 mg/dL (8.2-10.2); CREATININE 1.39 mg/dL (0.60-1.10); POTASSIUM 3.5 mmol/L (3.5-5.1)
[2017-05-15] MEDS: SOLU-MEDROL 125 MG IVP SCH ×3 (05:34→20:07)
[2017-05-15] MEDS: CARAFATE PO SCH ×2 (05:34→16:56)
[2017-05-15] MEDS: ATROVENT 0.02% NEB NEB SCH ×4 (05:38→23:02)
[2017-05-15] MEDS: XOPENEX 1.25 MG NEB SCH ×4 (05:38→23:02)
[2017-05-15 09:10] LABS: IMMATURE RETIC FRACTION 25.9; RETICULOCYTE % 1.21 %
[2017-05-15] MEDS: PROTONIX IV IVP SCH (09:37)
[2017-05-15] MEDS: BENICAR PO SCH (09:38)
[2017-05-15] MEDS: MS CONTIN PO SCH ×2 (09:38→20:38)
[2017-05-15] MEDS: LOVENOX SUBCUT SCH (09:38)
[2017-05-15] MEDS: NEURONTIN PO SCH ×2 (09:38→20:38)
[2017-05-15] MEDS: INDERAL PO SCH ×2 (09:38→20:38)
[2017-05-15 09:53] LABS: FERRITIN 153.08 ng/mL (21.81-274.66); FOLATE 16.2 ng/mL (3.1-20.5)
--- NOTE | 2017-05-15 14:30 | DI ---
EXAM: Chest two view, frontal and lateral views. HISTORY: Shortness of air. COMPARISON: 05/12/2017. FINDINGS: The heart size is normal. There is no pulmonary vascular congestion. Calcified granulom atous changes noted. Mild posterior left lower lobe consolidation suggested. Otherwise, the lungs are clear. No pleural effusion or pneumothorax is seen. No acute osseous abnormality identified. IMPRESSION: Suspect mild left lower lobe atelectasis or pneumonia.
[2017-05-15] MEDS: PROTONIX PO SCH (16:56)
[2017-05-15] MEDS: ROCEPHIN 1 GM in SODIUM CHLORIDE 50 ML IV SCH (20:07)
[2017-05-15] MEDS: PRAVACHOL PO SCH (20:38)
[2017-05-15] MEDS: ZITHROMAX PO SCH (20:38)
[2017-05-16] MEDS: SODIUM CHLORIDE 0.9%-KCL 20 MEQ 1,000 ML IV SCH (04:00)
[2017-05-16] MEDS: SOLU-MEDROL 125 MG IVP SCH (04:00)
[2017-05-16 04:24] LABS: ABG BASE EXCESS 1 (-2.0-2.0); ABG HCO3 24.6 (22.0-26.0); ABG PCO2 35.7 mmHg (35-45); ABG PH 7.446 (7.35-7.45); ABG TCO2 26 (22.0-28.0)
[2017-05-16 05:04] VITALS: BP 153/94; TEMP 98.4
[2017-05-16] MEDS: ATROVENT 0.02% NEB NEB SCH (05:04)
[2017-05-16] MEDS: XOPENEX 1.25 MG NEB SCH (05:04)
[2017-05-16 05:14] LABS: BASOPHILS % (AUTO) 0.1 % (0.0-3.0); HEMATOCRIT 31.3 % (42.0-52.0); HEMOGLOBIN 10.6 g/dl (14.0-18.0); IMMATURE GRANULOCYTE % (AUTO) 0.8 % (0.0-5.0); LYMPHOCYTES # (AUTO) 0.5 K/uL (0.60-3.4); LYMPHOCYTES % (AUTO) 3.4 (10.0-50.0); MEAN CORPUSCULAR HEMOGLOBIN 30.8 pg (27.0-31.0); MEAN CORPUSCULAR HGB CONC 33.9 (31.8-35.4); MONOCYTES # (AUTO) 0.3 K/uL (0.4-2.0); MONOCYTES % (AUTO) 2.1 (0-10); NEUTROPHILS # (AUTO) 13.6 K/ul (2.0-6.9); NEUTROPHILS % (AUTO) 93.6; PLATELET COUNT 302 10^3/uL (140-440); RED BLOOD COUNT 3.44 10^6/ul (4.70-6.10); WHITE BLOOD COUNT 14.51 K/ul (4.2-10.2)
[2017-05-16 05:34] LABS: ANION GAP 16.6; BUN/CREATININE RATIO 19.56; CALCIUM 7.5 mg/dL (8.2-10.2); CREATININE 1.38 mg/dL (0.60-1.10); POTASSIUM 3.6 mmol/L (3.5-5.1)
[2017-05-16] MEDS: CARAFATE PO SCH (05:34)
[2017-05-16] MEDS: PROTONIX PO SCH (05:34)
[2017-05-16] MEDS ORDERED: FLOMAX PO SCH (09:00)
--- NOTE | 2017-05-16 09:34 | PN ---
DATE OF SERVICE: 05/15/17 SUBJECTIVE: The patient is admitt ed with pneumonia and hypoxemia, breathing some better. He still has coughing. His hands are very shaky whenever he is trying to eat or drink. Movements are worse. CT of the head is negative. REVIEW OF SYSTEMS: CONSTITUTIONAL: No fever, no chills. HEENT: Normal. ENDOCRINE: No weight gain, no weight loss. CVS: No angina symptoms. No CHF symptoms. No palpitations. No atypical chest pain for CAD. Breathing is better. No PND, no orthopnea. RESPIRATORY: Cough. No hemoptysis. GI: No nausea, no vomiting. No abdominal pain. : No hematuria. No polyuria. MUSCULOSKELETAL:. No joint swelling. PSYCHIATRIC: Not anxious. No depression. No suicidal thoughts. No homicidal thoughts. SKIN: Intact. No rash. PHYSICAL EXAMINATION: V/S: BP 117/69, respiratory rate 18, heart rate 96.8. HEENT: Normocephalic, atraumatic. Mucosa dry. Pallor positive. No scleral icterus. NECK: Supple. No JVD, no carotid bruit. No lymphadenopathy. LUNGS: Decreased entry, clear to auscultation. No rales or rhonchi. HEART: S1, S2 normal. No S3. No murmur, gallop or regurgitation. ABDOMEN: Soft, nontender. Bowel sounds active. No rigidity. No rebound or guarding. No CVA tenderness. EXTREMITIES: No clubbing, cyanosis or pedal edema. MUSCULOSKELETAL: No joint swelling. NEUROLOGIC: Awake, alert, oriented times three. No focal deficit. LYMPHATIC: No lymph nodes palpable. SKIN: Intact. LABS: White Count 13.19, hemoglobin 9.8, hematocrit 28.9, platelet count 272. Sodium 141, potassium 3.5, chloride 105, bicarb 23, BUN 26, creatinine 1.39. ASSESSMENT: 1. COPD EXACERBATION SECONDARY TO COMMUNITY ACQUIRED PNEUMONIA, RESPIRATORY FAILURE, COMMUNITY ACQUIRED PNEUMONIA. 2. ANEMIA WITH HISTORY OF GI BLEED. 3. CHRONIC ELEVATED BUN AND CREATININE. 4. STATUS POST HYPOKALEMIA. 5. FAMILIAL TREMORS. PLAN: 1. Inderal 40 mg b.i.d. 2. Protonix 40 mg p.o. daily from IV 3. Continue Rocephin 4. Duonebs 5. Lovenox for DVT prophylaxis 6. Out of bed to chair 7. Activity as tolerated TIME SPENT: More than 30 minutes MTDD
[2017-05-16] MEDS: INDERAL PO SCH (09:45)
[2017-05-16] MEDS: LOVENOX SUBCUT SCH (09:45)
[2017-05-16] MEDS: BENICAR PO SCH (09:46)
[2017-05-16] MEDS: MS CONTIN PO SCH (09:46)
[2017-05-16] MEDS: NEURONTIN PO SCH (09:46)
--- NOTE | 2017-05-29 11:01 | PN ---
DATE OF SERVICE: 05/14/17 SUBJECTIVE: The patient was admitted with acute respiratory failure and pneumonia, bilateral. The patient's family had concern that the patient had been losing weight from the last couple of months and has been shaking with weakness. Otherwise, she is still coughing. REVIEW OF SYSTEMS: CONSTITUTIONAL: No fever, no chills. HEENT: Normal. ENDOCRINE: No weight gain, no weight loss. CVS: No angina symptoms. No CHF symptoms. No palpitations. No atypical chest pain for CAD. No shortness of breath. No PND, no orthopnea. RESPIRATORY: Cough, no hemoptysis. GI: No nausea, no vomiting. No abdominal pain. : No hematuria. No polyuria. MUSCULOSKELETAL:. No joint swelling. PSYCHIATRIC: Not anxious. No depression. No suicidal thoughts. No homicidal thoughts. SKIN: Intact. No rash. PHYSICAL EXAMINATION: V/S: Blood pressure 123/66, respiratory rate 20, heart rate 65, temperature 97. HEENT: Normocephalic, atraumatic. Mucosa dry. Pallor positive. No icterus. NECK: Supple. No JVD, no carotid bruit. No lymphadenopathy. LUNGS: Decreased, basilar crackles. No rales or rhonchi. HEART: S1, S2 normal. No S3. No murmur, gallop or regurgitation. ABDOMEN: Soft, nontender. Bowel sounds active. No rigidity. No rebound or guarding. No CVA tenderness. EXTREMITIES: No clubbing, cyanosis or pedal edema. MUSCULOSKELETAL: No joint swelling. NEUROLOGIC: Awake, alert. Tremors in the hands. No focal deficit. LYMPHATIC: No lymph nodes palpable. SKIN: Intact. LABS: White count is 7.25, hemoglobin 9.5, hematocrit 28.1, platelet count 244. Sodium 138, potassium 3.5, chloride 103, bicarb 25, BUN 27, creatinine 1.59. ASSESSMENT: 1. ACUTE RESPIRATORY FAILURE 2. BILATERAL PNEUMONIA 3. COPD EXACERBATION SECONDARY TO THE PNEUMONIA 4. ANEMIA 5. RULE OUT GI BLEED 6. WEIGHT LOSS 7. TREMORS PLAN: 1. We will start the patient on Protonix 40 mg twice daily. 2. Continue the Lovenox. 3. Continue breathing treatments. 4. Daily I & O's. 5. Will follow up with the patient in daily rounds. TIME SPENT: More than 30 minutes MTDD
--- NOTE | 2017-06-04 09:45 | DS ---
DATE OF SERVICE: 05/16/17 FINAL DIAGNOSIS: 1. Acute respiratory failure secondary to the COPD exacerbation and bronchitis 2. Hypoxemic respiratory failure 3. Community acquired pneumonia 4. Dyslipidemia 5. Hypertension 6. Anemia 7. GERD 8. Infrarenal aneurysm 3.1cm per CAT 9. Lumbar fusion L4 S1 10.Thoracic spine surgery 11.Essential tremors. 12.Urinary retention post BPH, the patient is on Bran Catheter. DISCHARGE INSTRUCTIONS: Discharge the patient home. No changes has been made to the home medications. Continue Nebulizer treatment as instructed by Dr. Siegel. Urology appointment May [address] Siegel May 22. Continue the rest of the home medications. MEDICATIONS AT DISCHARGE: Neurontin 300mg twice a day Morphine 30mg PO twice a day Olmesartan 20mg PO daily Pravachol 20mg at bedtime Carafate 1 gram twice a day NEW PRESCRIPTIONS: Keflex 500mg one tablet twice a day for 7 days. Inderal 40mg one tablet twice a day for essential tremors. Medrol Dosepak steroids start today Flomax 0.4mg PO daily DIET INSTRUCTIONS: Regular ACTIVITY: As much as tolerated SMOKING: Current everyday smoker. DISEASE SPECIFIC EDUCATION: COPD Pneumonia and Pneumonia vaccination Urinary retention and UTI been discussed. Bran Catheter care discussed with the patient HOSPITAL COURSE: Drake Rea who is a 66 year old male came to the emergency room cough and congestion, shortness of breath and found to be in acute respiratory failure and community acquired pneumonia. The patient was admitted to the hospital. WBC was normal. Started on the DUO NEBS and Solu-Medrol Q 8 hours, Rocephin 1 gram daily, IV fluids, Potassium was given and Azithromycin was also given. Potassium was 3.2 which was corrected. On the day of admission the patient was having problems with urination and bladder scan done which showed the urine of more than 628ml. The patient was put on the Bran Catheter and Flomax was started. CT of abdomen and pelvis obtained which showed the BPH and infrarenal abdominal aortic aneurysm.Gradually the patient was breathing better and up and about. Could not remove the Bran Catheter, the patient was still continued with the Bran Catheter. Breathing has improved and coughing is less. At that time the patient is being discharged home with specific instruction to followup with Dr. James Talamantes at the [facility] and followup with Dr. Siegel and Bran Catheter care. TIME SPENT: MORE THAN 55 MINUTES MTDD
== END 2017-05-16 11:05 | disposition home or self-care (01) | DRG 202 ==
LOC: ED 19:06 → SCU 23:01
PROVIDERS: ADMIT Emergency Medicine; ATTEND Emergency Medicine
DX: J20.9 Acute bronchitis, unspecified (principal); J96.21 Acute and chronic respiratory failure with hypoxia; J18.9 Pneumonia, unspecified organism; J44.1 Chronic obstructive pulmonary disease with (acute) exacerbation; J44.0 Chronic obstructive pulmonary disease with (acute) lower respiratory infection; R06.02 Shortness of breath; R10.30 Lower abdominal pain, unspecified; R50.9 Fever, unspecified; N40.1 Benign prostatic hyperplasia with lower urinary tract symptoms; R33.8 Other retention of urine; I10 Essential (primary) hypertension; D64.9 Anemia, unspecified; E87.6 Hypokalemia; R79.89 Other specified abnormal findings of blood chemistry; K21.9 Gastro-esophageal reflux disease without esophagitis; G25.0 Essential tremor; E78.5 Hyperlipidemia, unspecified; I71.4 Abdominal aortic aneurysm, without rupture; M47.9 Spondylosis, unspecified; G89.4 Chronic pain syndrome; F17.210 Nicotine dependence, cigarettes, uncomplicated; Z96.0 Presence of urogenital implants; Z79.899 Other long term (current) drug therapy
CPT/HCPCS: 36415; 80048; 80053; 81001; 82607; 82728; 82746; 82803; 83540; 83550; 83605; 83880; 84145; 84466; 84484; 85007; 85025; 85045; 85379; 87040; 87081; 93005; 93010; 94640; 96361; 96365; 97802; 99284